=== PATIENT | female | born 1980 ===

== ENCOUNTER 2017-09-23 21:54 | Emergency (ER) | payer BC ==
--- NOTE | 2017-09-23 22:45 | C.PDOC ---
History Of Present Illness 36 y/o female c/o headache, myalgia, sore throat, dry cough x 1 day. +sick children with similar symptoms at home. pt hasn't taken anything. HPI: Influenza Time Seen by Provider: 09/23/17 22:22 Chief Complaint: Cough, Cold, Congestion History Per: Patient Exam Limitations: no limitations Onset/Duration Of Symptoms: Days (1) Symptoms include: fever, headache, bodyaches, sore throat. denies: vomiting Past Medical History Reviewed: Historical Data, Nursing Documentation, Vital Signs Vital Signs: Last Vital Signs Temp 102.4 F H 09/23/17 22:11 Pulse 102 H 09/23/17 22:11 Resp 22 09/23/17 22:11 BP 136/86 09/23/17 22:11 Pulse Ox 99 09/23/17 22:11 - Medical History PMH: No Chronic Diseases Family History: States: Unknown Family Hx - Social History Hx Tobacco Use: No Hx Alcohol Use: No Hx Substance Use: No Review Of Systems Constitutional: Positive for: Fever, Sweats ENT: Positive for: Throat Pain. Negative for: Ear Pain Cardiovascular: Negative for: Chest Pain Respiratory: Positive for: Cough Gastrointestinal: Negative for: Nausea, Vomiting Genitourinary: Negative for: Dysuria Skin: Negative for: Rash Neurological: Negative for: Weakness, Numbness Physical Exam - Physical Exam Appears: Non-toxic, No Acute Distress Skin: Warm, Dry Head: Atraumatic, Normacephalic Eye(s): bilateral: Normal Inspection Ear(s): Bilateral: Normal Nose: No Discharge Tongue: Normal Appearing Throat: Erythema, No Exudate, Other (bilateral enlarged tonsils) Neck: Supple Cardiovascular: Rhythm Regular, No Murmur Respiratory: No Decreased Breath Sounds, No Wheezing Gastrointestinal/Abdominal: Soft, No Tenderness - ECG O2 Sat by Pulse Oximetry: 99 Disposition Counseled Patient/Family Regarding: Studies Performed, Diagnosis, Need For Followup, Rx Given - Disposition Referrals: [facility] [Outside] Disposition: HOME/ ROUTINE Disposition Time: 00:03 Condition: GOOD Additional Instructions: Drink hot fluids- tea with honey and lemon. Gargle with warm salty water several times a day. Tkae Tamiflu and Tylenol as prescribed. Follow up in medical clinic in a few days. Return to ER for any worse symptoms. Prescriptions: Acetaminophen [Tylenol 325mg tab] 650 mg PO Q4 #50 tab Oseltamivir Phosphate [Tamiflu] 75 mg PO BID #9 capsule Instructions: Flu, Adult (DC) Forms: [facility] (Serbian), General Discharge Instructions - Clinical Impression Clinical Impression: Influenza-like illness
[2017-09-24 00:24] VITALS: BP 115/78; PULSE 90; RESP 20; TEMP 99
[2017-09-24 01:03] VITALS: O2SAT 99
== END 2017-09-24 00:24 | disposition home or self-care (01) ==
LOC: C.ER 21:54
DX: J11.1 Influenza due to unidentified influenza virus with other respiratory manifestations (principal)